=== PATIENT | female | born 1940 | race Caucasian/White ===

== ENCOUNTER 2023-08-08 13:12 | Emergency (ER) | payer OTHER, SELFPAY ==
[2023-08-08 13:17] VITALS: BP 151/108
[2023-08-08 13:40] LABS: % Basophils 1.1 % (0-2); % Eosinophils 0.2 % (0-6); % Immature Granulocytes 0.7 % (0-0.5); % Lymphocytes 10.4 % (20.5-51.1); % Monocytes 8.7 % (1.7-9.3); % Neutrophils 78.9 % (42.2-75.2); Absolute Basophils 0.1 10^3/uL (0-0.2); Absolute Lymphocytes 0.5 10^3/uL (1.2-3.4); Absolute Monocytes 0.4 10^3/uL (0.1-0.6); Absolute Neutrophils 3.6 10^3/uL (1.4-6.5); Hematocrit 38.4 % (37.0-47.0); Hemoglobin 13.2 g/dL (12.0-16.0); Mean Corp Hgb Conc. 34.4 g/dL (33.0-37.0); Mean Corpuscular Hgb 41.4 pg (27.0-31.0); Mean Corpuscular Volume 120.4 fL (81.0-99.0); Mean Platelet Volume 9.2 fL (7.4-10.4); Nucleated Red Blood Cells % 0 %; Platelet Count 402 10^3/uL (130-400); Red Blood Cell Count 3.19 10^6/uL (4.20-5.40); Red Cell Dist. Width 12.8 % (11.5-14.5); White Blood Cell Count 4.5 10^3/uL (4.8-10.8)
[2023-08-08 13:52] LABS: ALT (SGPT) 17 U/L (0-35); AST (SGOT) 23 U/L (14-36); Albumin 4.6 g/dl (3.5-5.0); Alkaline Phosphatase 99 U/L (38-126); Blood Urea Nitrogen 17 mg/dl (7-17); Calcium 10.2 mg/dl (8.4-10.2); Carbon Dioxide 24 mmol/L (22-30); Chloride 108 mmol/L (98-107); Glucose 104 mg/dl (70-99); Potassium 4.4 mmol/L (3.5-5.1); Sodium 139 mmol/L (135-145); Total Bilirubin 0.8 mg/dl (0.2-1.3); Total Protein 7.6 g/dl (6.3-8.2); eGFR > 60.00
[2023-08-08 14:03] LABS: Troponin I 0.024 ng/ml
[2023-08-08 16:58] VITALS: BMI 20.7
[2023-08-08 17:00] VITALS: BP 144/96
--- NOTE | 2023-08-08 17:35 | ED.GENMED ---
History of Present Illness
General
Chief Complaint: Blood Pressure Problem
Source: patient
Exam Limitations: none
Time Seen by Provider: 08/08/23 16:27
Travel History
Have you had any contact with someone who has COVID-19?: No
Do you have any symptoms of coronavirus? Fever > 100 degrees, chills, cough, shortness of breath, sore throat, loss of taste or smell, muscle aches, or headache?: No
History of Present Illness
History of Present Illness:
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 Patient reports was very lightheaded last night and has had intermittent lightheadedness.
She is followed by Dr. Vivar of nephrology for blood pressure and recently started on Benicar 2 days ago. She was unsure if this was causing her symptoms. She denies any chest pain shortness of breath.
She denies any recent fever or chills.
Past History
Past History
ED Past Medical History: HTN
Social History
Tobacco: Non-smoker
Personal: Single
Living: alone
Family History
Family History: Unable to obtain
Review of Systems
Review of Systems
Allergies reviewed?: Yes
All Other Systems: ROS reviewed and negative except as documented in HPI and ROS
Constitutional: Reports no symptoms; Denies fever, fatigue or chills
Respiratory: Reports no symptoms
Cardiac: Reports no symptoms; Denies chest pain, diaphoresis, palpitations or syncope
ABD/GI: Reports no symptoms
Musculoskeletal: Reports no symptoms
Skin: Reports no symptoms
Neurological: Reports other (Preemption lightheaded )
Hematologic/Lymphatic: Reports no symptoms
Psychiatric: Reports no symptoms
Phy Exam
General Physical Exam
General Presentation: no apparent distress
General age: appears stated age
General Skin: warm and dry
General Habitus: normal
General Mental: alert
General Hydration: appears well hydrated
Cardiovascular Exam
Cardiovascular Exam: irregularly irregular
Neurological Exam
Neurological Exam: alert and oriented x3
Musculoskeletal Exam
Musculoskeletal Exam: full ROM
Skin Exam
Skin Exam: normal color and warm/dry
Psychiatric Exam
Psychiatric Exam: normal mood/affect
Course
Orders/Labs/Results
Orders:
Orders
08/08/23 13:23
EKG [Electrocardiogram (*1)] Urgent
Reason for Study: Chest Pain
08/08/23 13:24
EKG- Treatment ONCE
08/08/23 13:28
CBC/With Diff [Complete Blood Count/With Diff] Urgent
CMP [Comprehensive Metabolic Panel] Urgent
Troponin I Urgent
08/08/23 19:39
Apixaban [Eliquis] 5 mg PO NOW STA
08/08/23 19:45
Apixaban [Eliquis] 2.5 mg PO NOW STA
Abnormal Lab Results
08/08/23
13:28
WBC 4.5 L 10^3/uL
(4.8-10.8)
RBC 3.19 L 10^6/uL
(4.20-5.40)
MCV 120.4 H fL
(81.0-99.0)
MCH 41.4 H pg
(27.0-31.0)
Plt Count 402 H 10^3/uL
(130-400)
Absolute Lymphs (auto) 0.5 L 10^3/uL
(1.2-3.4)
Immature Gran % 0.7 H %
(0-0.5)
Neutrophils % 78.9 H %
(42.2-75.2)
Lymphocytes % 10.4 L %
(20.5-51.1)
Chloride 108 H mmol/L
(98-107)
Glucose 104 H mg/dl
(70-99)
08/08/23 13:28
08/08/23 13:28
Vital Signs
Initial and Last Documented VS:
Initial Vital Signs
Temp Pulse Resp BP Pulse Ox
98.2 F 98 16 151/108 98
08/08/23 13:17 08/08/23 13:17 08/08/23 13:17 08/08/23 13:17 08/08/23 13:17
Last Documented Vital Signs
Temp Pulse Resp BP Pulse Ox
98.2 F 88 14 144/96 98
08/08/23 13:17 08/08/23 17:00 08/08/23 17:00 08/08/23 17:00 08/08/23 17:00
MDM/Problems Addressed
Differential Diagnosis Includes:
Not limited to dehydration arrhythmia anemia
MDM/Problems Addressed:
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 She is also on aspirin. She presented for lightheadedness and was found to be in A-fib today however she is in controlled
rate. She has no palpitations no chest pain or shortness of breath she is nontoxic. Lungs are clear she is in no acute distress well-appearing asymptomatic here in the ER. 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 Holley or .
[facility]. I did review with cardiology via [facility] text DR Cline will start patient on Eliquis. Patient has normal creatinine and with age being over 80 will start on 2.5 mg twice a day. Patient is also on hydroxyurea I did review this
with hematology on-call Dr. Gentry rodriguez for Eliquis.
I did review Eliquis with patient.
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
*Critical Care Note
Total Time (30-74mins, 75-104mins- exclusive of procedures): Not Applicable
ED Attending Note
-
Portions of this chart may have been created with voice recognition software.� Occasional wrong word or��sound alike� substitutions may have occurred due to the inherent limitations of voice recognition software.
Discharge Plan
Departure
Patient Disposition: Home (Routine Discharge)
Date of Disposition: 08/08/23
Time of Disposition: 19:42
Admit to: Telemetry
Patient with high blood pressure during this ER visit?: Yes
Condition: Fair
Covid-19: Not Applicable
Discharge Problem:
Atrial fibrillation
Instructions: Atrial Fibrillation (DC), BLOOD PRESSURE
Prescriptions:
New
Eliquis 2.5 mg tablet
2.5 mg PO BID Qty: 60 0RF
No Action
atenolol 50 MG tablet
50 mg PO HS
diltiazem HCl 240 MG capsule,extended release 24hr
240 mg PO DAILY
atenolol 25 MG tablet
25 mg PO DAILY
Referrals:
Robby Bustillos DO [Family Provider] -
Judah Espinosa MD [Active] -
Activity Restrictions/Additional Instructions:
As discussed you were found to be in atrial fibrillation here in the ER. You were started on a blood thinner: Eliquis 2.5 mg twice a day. This medication was sent to your pharmacy. you may continue your hydroxyurea and aspirin however please
follow-up with your waiter/waitress tourist class to let them know and make them aware that you are on blood thinners to the can further manage your essential thrombocythemia. In addition you will need to follow-up with cardiology please see information above
please call Friday to make an appointment for the next several days for reevaluation of atrial fibrillation. Return however to the ER for any worsening of symptoms if chest pain shortness of breath rapid heartbeat sensation palpitations or any
further concerns
Interventions
Interventions:
*Risk Screen - Suicide Last Done: 08/08/23 13:17
*General Assessment Last Done: 08/08/23 13:17
*Neglect/Abuse Screening Last Done: 08/08/23 13:17
ED- Fall Risk Assessment Last Done: 08/08/23 16:58
ED- Cardiac Assessment Last Done: 08/08/23 16:58
ED- Neurological Assessment Last Done: 08/08/23 16:58
ED- Pulmonary Assessment Last Done: 08/08/23 16:58
Discharge Date and Time
Print Language: SOUTH SUDANESE
[2023-08-08 18:00] VITALS: BP 161/94
[2023-08-08 20:13] VITALS: BP 146/91
[2023-08-08] MEDS: ELIQUIS 2.5 MG PO (20:13)
== END 2023-08-08 20:20 | disposition home or self-care (01) ==
LOC: EMR 13:12
PROVIDERS: Emergency Medicine; EMERGENCY PHYSICIAN Student in an Organized Health Care Education/Training Program; FAMILY PHYSICIAN Family Medicine
DX: R42 Dizziness and giddiness (principal); I48.91 Unspecified atrial fibrillation; D75.839 Thrombocytosis, unspecified; I10 Essential (primary) hypertension; D47.3 Essential (hemorrhagic) thrombocythemia; Z79.82 Long term (current) use of aspirin; Z88.8 Allergy status to other drugs, medicaments and biological substances
CPT/HCPCS: 99283; 80053; 84484; 85025; 93005

== ENCOUNTER → 2023-08-23 08:40 | Outpatient (REF) | payer OTHER, SELFPAY | LOC: RCS 08:40 | PROVIDERS: ATTENDING PHYSICIAN Internal Medicine Cardiovascular Disease; FAMILY PHYSICIAN Family Medicine | DX: I48.91 Unspecified atrial fibrillation (principal); R07.2 Precordial pain | CPT/HCPCS: 93225; 93226 ==

== ENCOUNTER → 2023-08-25 13:49 | Outpatient (REF) | payer OTHER, SELFPAY | LOC: HWRCS 13:49 | PROVIDERS: ATTENDING PHYSICIAN Internal Medicine Cardiovascular Disease; FAMILY PHYSICIAN Family Medicine | DX: I10 Essential (primary) hypertension (principal); I48.91 Unspecified atrial fibrillation; R07.2 Precordial pain | CPT/HCPCS: 93306 ==

== ENCOUNTER → 2023-09-03 11:02 | Outpatient (REF) | payer OTHER, SELFPAY | LOC: DHCBC/DCA 11:02 | PROVIDERS: ATTENDING PHYSICIAN Internal Medicine Cardiovascular Disease; FAMILY PHYSICIAN Family Medicine | DX: I48.91 Unspecified atrial fibrillation (principal); R07.2 Precordial pain | CPT/HCPCS: 78452; 93017; A9500; J2785 ==

== ENCOUNTER 2024-12-07 12:46 | Emergency (ER) | payer MEDICARE, OTHER, SELFPAY ==
[2024-12-07 12:47] VITALS: BP 153/95
--- NOTE | 2024-12-07 14:04 | ED.GENMED ---
History of Present Illness
General
Chief Complaint: Musculo-Skeletal Complaint
Source: patient
Exam Limitations: none
Time Seen by Provider: 12/07/24 13:30
History of Present Illness
History of Present Illness:
See MDM
Past History
Past History
ED Past Medical History: Arrthythmia and HTN
ED Past Surgical History: Other (Hernia repair)
Social History
Tobacco: Non-smoker
Personal: Single
Living: alone
Family History
Family History: Unable to obtain
Phy Exam
Physical Exam
Physical Exam:
See MDM
Course
Orders/Labs/Results
Orders:
Orders
12/07/24 12:51
Ankle, left 3 view CR [CR Ankle - Left Min 3 Views ] Urgent
Comment:
Reason For Exam: pain, redness, swelling
12/07/24 14:02
Sulfamethox./Trimethoprim Ds [Bactrim Ds 800 mg/160 mg] 1 tablet PO NOW STA
Vital Signs
Initial and Last Documented VS:
Initial Vital Signs
Temp Pulse Resp BP Pulse Ox
98.5 F 106 18 153/95 98
12/07/24 12:47 12/07/24 12:47 12/07/24 12:47 12/07/24 12:47 12/07/24 12:47
Last Documented Vital Signs
Temp Pulse Resp BP Pulse Ox
98.5 F 106 18 153/95 98
12/07/24 12:47 12/07/24 12:47 12/07/24 12:47 12/07/24 12:47 12/07/24 12:47
MDM/Problems Addressed
Differential Diagnosis Includes:
Note:
CHIEF COMPLAINT(S)
Painful sore on the ankle.
HISTORY OF PRESENT ILLNESS
The patient is an 83-year-old female who presented with a painful sore on her ankle. It began as a small sore resembling a scab. The patient applied Neosporin on it, which initially seemed effective. However, over the past couple of weeks, following
a move from [place] to her hometown to be closer to her daughter, the sore worsened and became red. After washing it, the area intensified in redness. She visited a doctor previously who prescribed cephalexin, which she has completed. The patient
reports increased pain at night when lying down, which affects her sleep. She describes the wound as being surrounded by hard tissue, with a central area that appears weeping, likely due to granulation tissue. An X-ray was performed to rule out any
fracture or osteomyelitis, and no signs were observed. The patient reported no recent fevers.
ALLERGIES
Patient reports allergies to 'inhibitors,' though no specific antibiotics or other drugs were mentioned as allergens.
PHYSICAL EXAM
General: Alert, no acute distress.
Skin: Warm, dry.
Head: Normocephalic, atraumatic
Neck: Appears supple, trachea midline.
Eyes, Ears, Nose, Mouth, and Throat: Oral mucosa moist.
Cardiovascular: No signs of cyanosis
Respiratory: Respirations are non-labored.
Abdomen: Non-distended
Musculoskeletal: Wound to left lateral malleolus. The central area with granulation tissue. No abscess or drainage. Surrounding skin without cellulitic changes but mild induration. The distal extremity is neurovascularly intact
Neurological: No focal neurological deficit observed.
Psychiatric: Cooperative, appropriate mood and affect.
PLAN
1. Initiate treatment with trimethoprim-sulfamethoxazole (Bactrim) for its stronger antibiotic effects.
2. Continue the application of a topical ointment and keep the wound covered.
3. Provide the patient with a referral to a wound care center for specialized management if the condition persists.
4. Prescribe tramadol for nighttime pain as needed, explaining the potential use and risks due to its classification as a low-dose narcotic.
5. Monitor progress and advise follow-up with the primary care physician.
DIFFERENTIAL DIAGNOSIS
The Differential Diagnosis includes, in no particular order and is not limited to:
1. Cellulitis
2. Venous stasis ulcer
3. Diabetic ulcer
4. Contact dermatitis
5. Osteomyelitis
6. Pressure ulcer
7. Foreign body reaction
8. Erysipelas
9. Necrotizing fasciitis
10. Gout
Disposition:
SUMMARY OF ENCOUNTER
The patient, an 83-year-old female, presented with concerns about a poorly healing wound on her left lateral malleolus. Initially treated with cephalexin, which helped with the surrounding cellulitis, the core area now appears more like granulation
tissue rather than pus. To aid healing, a non-adherent dressing was applied. Pain management for nighttime symptoms was discussed, as they are most intense at night. The patient was advised to follow up at a wound care center for dressing changes
and further evaluation. The patient reported no fever and appeared comfortable at home.
DISPOSITION
Discharge.
ASSESSMENT
The wound is healing, though slowly, and currently appears consistent with granulation tissue.
PLAN
Apply a non-adherent dressing to the wound. Provide pain medication for nighttime use. Arrange follow-up with a wound care center for continued management and evaluation.
INDEPENDENT REVIEW OF LABS AND INTERPRETATION OF TESTS
My independent review of the ankle x-ray indicates no fracture or evidence of osteomyelitis.
FOLLOW-UP INSTRUCTIONS
The patient is instructed to contact the wound care center for follow-up regarding dressing changes and further evaluation.
MEDICATION RECONCILIATION
A prescription for pain medication to be used at nighttime was provided to manage symptoms.
MEDICAL DECISION MAKING
-Complexity of Data Reviewed: Chronic conditions affecting care include the patients age-related health considerations. The Differential Diagnosis includes cellulitis, venous stasis ulcer, diabetic ulcer, contact dermatitis, osteomyelitis, pressure
ulcer, foreign body reaction, erysipelas, necrotizing fasciitis, and gout.
-Data:
Category 1
My independent interpretation of the ankle x-ray shows no fracture or evidence of osteomyelitis.
-Risk:
Prescription medication was prescribed for nighttime pain management.
DIAGNOSIS
1. 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
2. Pain in left ankle and joints of left foot (ICD-10: M25.572)
*Pulse Oximetry
SaO2: 98
Oxygen Mode of Delivery: Room air
Patient hypoxic: no
*Critical Care Note
Total Time (30-74mins, 75-104mins- exclusive of procedures): Not Applicable
ED Attending Note
-
Portions of this chart may have been created with voice recognition software.� Occasional wrong word or��sound alike� substitutions may have occurred due to the inherent limitations of voice recognition software.
Discharge Plan
Departure
Patient Disposition: Home (Routine Discharge)
Date of Disposition: 12/07/24
Time of Disposition: 14:10
Patient with high blood pressure during this ER visit?: Yes
Discharge Problem:
Ankle wound
Instructions: BLOOD PRESSURE
Prescriptions:
New
sulfamethoxazole-trimethoprim [Bactrim DS] 800-160 mg tablet
1 tab PO BID 7 Days Qty: 14 0RF
tramadol 50 mg tablet
50 mg PO HS PRN (Reason: pain) Qty: 10 0RF
No Action
atenolol 50 MG tablet
50 mg PO HS
diltiazem HCl 240 MG capsule,extended release 24hr
240 mg PO DAILY
atenolol 25 MG tablet
25 mg PO DAILY
Eliquis 2.5 mg tablet
2.5 mg PO BID Qty: 60 0RF
Referrals:
[facility] [[facility]]
Activity Restrictions/Additional Instructions:
Watch for worsening signs of infection: fever over 100.5', increasing pain, red streaks around wound, swelling, or increasing drainage of pus. If any of these happen, return to ED promptly. Make sure that you take all your antibiotics as directed
and finish your prescription even if you feel better before the bottle is empty.
Please follow-up with your primary care doctor and follow-up with wound care.
Interventions
Interventions:
*Risk Screen - Suicide Last Done: 12/07/24 12:47
*General Assessment Last Done: 12/07/24 12:47
Discharge Date and Time
Print Language: [id number]
[2024-12-07] MEDS: BACTRIM DS 800 MG/160 MG 1 TABLET PO (14:20)
== END 2024-12-07 14:30 | disposition home or self-care (01) ==
LOC: EMR 12:46
PROVIDERS: EMERGENCY PHYSICIAN Student in an Organized Health Care Education/Training Program; FAMILY PHYSICIAN Family Medicine
DX: L97.329 Non-pressure chronic ulcer of left ankle with unspecified severity (principal); M25.572 Pain in left ankle and joints of left foot; I10 Essential (primary) hypertension
CPT/HCPCS: 99283; 73610

== ENCOUNTER → 2025-02-03 11:01 | Outpatient (REF) | payer MEDICARE, OTHER, SELFPAY | LOC: HWRCS 11:01 | PROVIDERS: ATTENDING PHYSICIAN Internal Medicine Cardiovascular Disease; FAMILY PHYSICIAN Family Medicine | DX: I48.19 Other persistent atrial fibrillation (principal); I34.0 Nonrheumatic mitral (valve) insufficiency | CPT/HCPCS: 93306 ==

== ENCOUNTER → 2025-02-23 13:44 | Outpatient (REF) | payer MEDICARE, OTHER, SELFPAY | LOC: RAD 13:44 | PROVIDERS: ATTENDING PHYSICIAN Family Medicine | DX: R25.2 Cramp and spasm (principal); R60.0 Localized edema | CPT/HCPCS: 93970 ==

== ENCOUNTER → 2025-03-18 07:51 | Outpatient (REF) | payer MEDICARE, OTHER, SELFPAY | LOC: RAD 07:51 | PROVIDERS: ATTENDING PHYSICIAN Family Medicine | DX: I73.9 Peripheral vascular disease, unspecified (principal) | CPT/HCPCS: 93925 ==

== ENCOUNTER 2025-03-31 07:48 | Outpatient (REF) | payer MEDICARE, OTHER, SELFPAY | END 2025-03-31 23:59 | disposition home or self-care (01) | LOC: WOUND 07:48 | PROVIDERS: ATTENDING PHYSICIAN Registered Nurse; FAMILY PHYSICIAN Family Medicine | DX: L97.322 Non-pressure chronic ulcer of left ankle with fat layer exposed (principal); R60.0 Localized edema; I87.2 Venous insufficiency (chronic) (peripheral) | CPT/HCPCS: 97597; 99204 ==

== ENCOUNTER 2025-04-12 13:30 | Outpatient (REF) | payer MEDICARE, OTHER, SELFPAY | END 2025-04-12 23:59 | disposition home or self-care (01) | LOC: WOUND 13:30 | PROVIDERS: ATTENDING PHYSICIAN Registered Nurse; FAMILY PHYSICIAN Family Medicine | DX: L97.322 Non-pressure chronic ulcer of left ankle with fat layer exposed (principal); R60.0 Localized edema; I87.2 Venous insufficiency (chronic) (peripheral) | CPT/HCPCS: 97597 ==

== ENCOUNTER → 2025-04-15 10:20 | Outpatient (REF) | payer MEDICARE, OTHER, SELFPAY | LOC: DHVS 10:20 | PROVIDERS: ATTENDING PHYSICIAN Surgery Vascular Surgery; FAMILY PHYSICIAN Family Medicine | DX: R60.0 Localized edema (principal) | CPT/HCPCS: 93970 ==